=== PATIENT | male | born 1960 | race Caucasian/White ===

== ENCOUNTER → 2018-01-04 | Outpatient (CLI) | payer OTHER ==
--- NOTE | 2018-01-04 12:58 | RAD ---
MR#: [id number] Date of Study: 01/04/2018 Ordering Physician: ENA DOHERTY, Referring Physician: ENA DOHERTY Tech: Lelia Izaguirre RDMS RVT APPROVED REPORT Patient Location: OUT-PATIENT Risk Factors History of Lower Extremity PAD: Bilaterally VELOCITY AND DOPPLER WAVEFORM ANALYSIS RIGHT cm/secWaveformSeverity LEFT cm/secWaveform Severity pCFA 108.5TriphasicpCFA 89.7Triphasic Prof Fem Art. 82.0TriphasicProf Fem Art. 68.0Triphasic Fem Art Prox. 83.6TriphasicFem Art Prox. 111.3Triphasic Fem Art Mid. 68.9TriphasicFem Art Mid. 80.3Triphasic Fem Art Dist. 87.8TriphasicFem Art Dist. 101.2Triphasic Pop Art(Fossa) 61.0TriphasicPop Art(AK) 81.9Triphasic ROLL SLICING MACHINE TENDER Dist. 71.5TriphasicPTA Dist. 45.3Monophasic Per Art Dist.82.0TriphasicPer Art Dist.101.0Triphasic [place] Dist. 72.0TriphasicATA Dist. 77.3Triphasic DPA 75TriphasicDPA 60Triphasic Findings Aceves scale images of the bilatera lower extremity arterial vessels reveals mild luminal atheroscleros is without significant obstruction. Color doppler and spectral waveforms in the right and left common, SFA, Profunda, Popliteal, AT/Peron eal vessels are within normal limits. Left posterior tibial artery velocity is mildly reduced in a mo nophasic wave pattern suggestive of diffuse disease. Critical Notification Critical Value: No <Conclusion> No significant disease in the bilateral lower extremity arterial vessels. Signed by : Ena Doherty, Electronically Approved : 01/04/2018 12:57:22
--- NOTE | 2018-01-04 14:37 | RAD ---
MR#: [id number] Date of Study: 01/04/2018 Ordering Physician: ENA DOHERTY, Referring Physician: ENA DOHERTY, Tech: Lelia Izaguirre RDMS RVT APPROVED REPORT Patient Location : OUT-PATIENT Indications VENOUS INSUFFICIENCY Findings Grayscale images the bilateral saphenofemoral junctions do not reveal any obvious evidence of thrombu s on limited imaging. The right great saphenous vein measures proximally 6 mm and the left great saphenous vein measures ap proximately 7 mm. The bilateral greater saphenous veins have reflux up to 2.5 seconds. The bilateral lesser saphenous veins are positive for reflux at approximately 1.5 seconds. The right lesser saphenous vein measures 5 mm and the left lesser saphenous vein measures 7 mm. Critical Notification Critical Value: No <Conclusion> 1. Reflux in the bilateral greater and lesser saphenous veins. Signed by : Ena Doherty, Electronically Approved : 01/04/2018 14:36:21
--- NOTE | 2018-01-04 14:49 | RAD ---
MR#: [id number] Date of Study: 01/04/2018 Ordering Physician: ENA DOHERTY, Referring Physician: ENA DOHERTY, Tech: APPROVED REPORT Findings Bilateral common femoral veins appear to be compressible without any obvious evidence of thrombus. Due to body habitus the superficial femoral and popliteal veins were not well visualized. The below-k nee veins are also not well visualized. Technically severely difficult study. Critical Notification Critical Value: No <Conclusion> No obvious common femoral vein thrombosis. Technically very limited study. No obvious evidence of thr ombus within these limitations. Signed by : Ena Doherty, Electronically Approved : 01/04/2018 14:48:37
== END | disposition home or self-care (01) ==
LOC: US 08:09
PROVIDERS: ATTEND Internal Medicine Cardiovascular Disease
DX: I73.9 Peripheral vascular disease, unspecified (principal); I87.2 Venous insufficiency (chronic) (peripheral)
CPT/HCPCS: 93925; 93970

== ENCOUNTER → 2018-09-21 | Outpatient (CLI) | payer OTHER ==
[~2018-09-21] MED LIST: CONTRAST GIVEN. MC PRN; IOHEXOL 350 MG/ML 100 ML VIAL. IV ONE; PERFLUTREN PROTEIN-A MICROSPHR 0.22 MG/ML 3 ML VIAL. IV ONE
[2018-09-21 13:41] LABS: CREATININE 1.2 mg/dL (0.7-1.3); GFR 62.6
--- NOTE | 2018-09-21 15:56 | RAD ---
EXAM: CT Abdomen and Pelvis with bilateral lower extremity runoff with IV contrast CLINICAL HISTORY: Lower extremity swelling, pain Evaluate for DVT, evaluate for May Thurner syndrome. COMPARISON: none TECHNIQUE: Helical CT of the abdomen and pelvis was performed following the administration of intravenous contrast with runoff evaluation of the lower extremities during the venous phase. Axial, coronal and sagittal reformatted images were generated. PQRS compliance statement - One or more of the following individualized dose reduction techniques were utilized for this study: 1. Automated exposure control 2. Adjustment of the mA and/or kV according to patient size 3. Use of iterative reconstruction technique FINDINGS: Note, suboptimal contrast bolus timing results in limited opacification of the vessels and solid organs. Lower chest: Lung bases are clear. Left hilar calcified granuloma. Small to moderate-sized hiatal hernia. Abdomen and Pelvis: No focal liver lesion. Gallbladder is normal. No biliary ductal dilatation. Spleen is unremarkable. Adrenal glands and pancreas are unremarkable. Symmetric nephrograms. No focal renal lesion. No hydronephrosis. Bladder is only partially distended but otherwise unremarkable. Appendix is normal. No small or large bowel dilatation. Moderate colonic stool content. No abdominal or pelvic lymphadenopathy. No abdominal or pelvic ascites. Intermittent atherosclerotic calcifications of aorta are seen. There is no significant narrowing of the iliac veins bilaterally iliac arteries to suggest May Thurner syndrome. However limited evaluation given suboptimal vascular opacification. Bilateral lower extremities: Post surgical changes of the right total tuberosity. Subcutaneous soft tissue swelling particularly of the lower legs with subcutaneous calcifications, right greater than left. Again, evaluation for DVT is limited given suboptimal contrast bolus timing. No evidence for acute fracture lower extremities. Calcaneal enthesopathy. Chondrocalcinosis symphysis pubis. Multilevel degenerative changes of spine are seen. No evidence for acute fracture. IMPRESSION: 1. Evaluation of the venous structures is limited given phase of IV contrast. Within these limitations, no definite morphologic changes to suggest May Thurner syndrome. Consider duplex ultrasound of the lower extremities to evaluate for lower extremity DVT. Electronically signed by: Simone Doherty MD (09/21/2018 3:53 PM) [facility]
--- NOTE | 2018-09-21 16:19 | CARD ---
MR#: [id number] Date of Study: 09/21/2018 Ordering Physician: ENA DOHERTY, Referring Physician: ENA DOHERTY, Tech: Carolina Fitzpatrick APPROVED REPORT EXAM: Two-dimensional and M-mode echocardiogram with Doppler and color Doppler. Other Information Quality : FairHR: 70bpm INDICATION Hypertension/HCVD Echo Enhancing Agent Indication: Endocardial border delineation Agent/Amount Used: Optison 10mL RISK FACTORS Diabetes 2D DIMENSIONS Left Atrium(2D)3.4 (1.6-4.0cm)IVSd1.1 (0.7-1.1cm) Aortic Root(2D)3.5 (2.0-3.7cm)LVDd6.3 (3.9-5.9cm) LVOT Diameter2.2 (1.8-2.4cm)PWd1.2 (0.7-1.1cm) LVDs3.3 (2.5-4.0cm)FS (%) 47.8 % SV155.9 ml Aortic Valve AoV Peak Guzman.115.4cm/sAoV VTI20.6cm AO Peak GR.5.3mmHgLVOT Peak Guzman.97.2cm/s LVOT VTI 21.89cmAO Mean GR.3mmHg ROBERT (VMAX)2.43dm3SVF (VTI)4.17cm2 Mitral Valve MV E Bqwhuzbb53.0cm/sMV DECEL [id number] MV A Xgfdtros63.0cm/sMV IKG44gt E/A Ratio1.5MVA (PHT)3.52cm2 TDI E/Lateral E'5.0E/Medial E'5.5 Pulmonary Valve PV Peak Fmbfgchk88.9cm/sPV Peak Grad.3mmHg Tricuspid Valve TR P. Qalpocgc571ud/sRAP [id number] TR Peak Gr.50zpUeZXHE13nuDd Pulmonary Vein S1 Cxgrciek90.7cm/sD2 Wrwsnxvg53.6cm/s PVa hefhjdni470tgls LEFT VENTRICLE The Left Ventricle is mildly dilated. There is mild concentric left ventricular hypertrophy. The left ventricular systolic function is normal and the ejection fraction is within normal range. The Ejecti on Fraction is 55-60%. There is normal LV segmental wall motion. The left ventricular diastolic funct ion and filling is normal for age. RIGHT VENTRICLE The right ventricle is borderline dilated. There is normal right ventricular wall thickness. The righ t ventricular systolic function is normal. ATRIA The left atrium is borderline dilated. The right atrium is mildly dilated. The interatrial septum is intact with no evidence for an atrial septal defect or patent foramen ovale as noted on 2-D or Dopple r imaging. AORTIC VALVE The aortic valve is normal in structure and function. Doppler and Color Flow revealed no significant aortic regurgitation. There is no significant aortic valvular stenosis. MITRAL VALVE The mitral valve is normal in structure and function. There is no evidence of mitral valve prolapse. There is no mitral valve stenosis. Doppler and Color-flow revealed trace mitral regurgitation. TRICUSPID VALVE The tricuspid valve is normal in structure and function. Doppler and Color Flow revealed trace tricus pid regurgitation with an estimated PAP of 40 mmHg. There is no tricuspid valve stenosis. PULMONIC VALVE The pulmonary valve is normal in structure and function. Doppler and Color Flow revealed no pulmonic valvular regurgitation. GREAT VESSELS The aortic root is normal in size. The IVC is normal in size and collapses >50% with inspiration. PERICARDIAL EFFUSION There is no evidence of significant pericardial effusion. Critical Notification Critical Value: No <Conclusion> The Left Ventricle is mildly dilated. The left ventricular systolic function is normal and the ejection fraction is within normal range. The Ejection Fraction is 55-60%. There is mild concentric left ventricular hypertrophy. There is no significant aortic valvular stenosis. Doppler and Color Flow revealed no significant aortic regurgitation. Doppler and Color-flow revealed trace mitral regurgitation. Doppler and Color Flow revealed trace tricuspid regurgitation with an estimated PAP of 40 mmHg. Signed by : Darren Palma MD Electronically Approved : 09/21/2018 16:18:34
== END | disposition home or self-care (01) ==
LOC: CT 13:45
PROVIDERS: ATTEND Internal Medicine Cardiovascular Disease
DX: K44.9 Diaphragmatic hernia without obstruction or gangrene (principal); N32.89 Other specified disorders of bladder; I51.7 Cardiomegaly; I70.0 Atherosclerosis of aorta; J84.10 Pulmonary fibrosis, unspecified; M77.8 Other enthesopathies, not elsewhere classified; M79.89 Other specified soft tissue disorders; I87.2 Venous insufficiency (chronic) (peripheral)
CPT/HCPCS: 36415; 74177; 82565; C8929; Q9956

== ENCOUNTER → 2019-03-14 | Outpatient (CLI) | payer OTHER ==
--- NOTE | 2019-03-14 16:03 | RAD ---
MR#: [id number] Date of Study: 03/14/2019 Ordering Physician: ENA DOHERTY, Referring Physician: ENA DOHERTY, Tech: JUDIE Clarke, RDMS, Rvt APPROVED REPORT Bilateral Lower Extremity Venous Study for DVT Patient Location: OUT-PATIENT Indications edema, dvt, on blood thinners, rt leg wound Risk Factors Obesity Findings Technically very difficult study due to the patient's body habitus of significantly enlarged lower ex tremities The bilateral common femoral veins appear to be patent and compressible. Bilateral superficial femora l veins are grossly patent and compressible The distal superficial femoral vein in the popliteal segment bilaterally are not well visualized. Can not rule out chronic thrombus. Bilateral below-knee veins were not well visualized. Critical Notification Critical Value: No <Conclusion> 1. Technically very difficult study. Cannot rule out the bilateral saphenous popliteal chronic thrombus. Signed by : Ena Doherty, Electronically Approved : 03/14/2019 16:03:14
--- NOTE | 2019-03-14 16:09 | RAD ---
MR#: [id number] Date of Study: 03/14/2019 Ordering Physician: ENA DOHERTY, Referring Physician: ENA DOHERTY, Tech: JUDIE Clarke, RDMS, RTR APPROVED REPORT Patient Location : OUT-PATIENT Indications History of DVT Skin Changes Risk Factors Obesity Findings The right great saphenous vein measures approximately 10 mm and has a maximum reflux time of 1.6 seco nds. The right lesser saphenous veins does not show any evidence of reflux. The left great saphenous vein measures 7 mm and has no evidence of reflux. The left lesser saphenous vein does not show any ev idence of reflux. Critical Notification Critical Value: No <Conclusion> 1. Positive for reflux in the right great saphenous vein. Signed by : Ena Doherty, Electronically Approved : 03/14/2019 16:08:56
== END | disposition home or self-care (01) ==
LOC: US 08:33
PROVIDERS: ATTEND Internal Medicine Cardiovascular Disease
DX: I82.409 Acute embolism and thrombosis of unspecified deep veins of unspecified lower extremity (principal); I87.2 Venous insufficiency (chronic) (peripheral); E66.9 Obesity, unspecified; Z86.718 Personal history of other venous thrombosis and embolism
CPT/HCPCS: 93970

== ENCOUNTER → 2019-09-24 | Outpatient (CLI) | payer OTHER ==
[~2019-09-24] MED LIST changes: -CONTRAST GIVEN. MC PRN; -IOHEXOL 350 MG/ML 100 ML VIAL. IV ONE; +LIDOCAINE 1%/EPI 1:100,000 50 ML, SODIUM BICARBONATE VIAL 5 MEQ in IV NORMAL SALINE 100... SQ STA; -PERFLUTREN PROTEIN-A MICROSPHR 0.22 MG/ML 3 ML VIAL. IV ONE
--- NOTE | 2019-09-24 14:59 | CARD ---
MR#: [id number] Date of Study: 09/24/2019 Ordering Physician: ALFRED COLLADO, Referring Physician: ALFRED COLLADO, Tech: Carolina Chang RVT; Eren POP;JITENDRA APPROVED REPORT Patient StatusOUT-PATIENT [employer]: Carolina Chang RVT; Eren POP;JITENDRA Procedure(s) performed: Endovenous radiofrequency ablation of the Right greater saphenous vein. INDICATION FOR PROCEDURE The indication(s) include : Symptomatic Chronic Venous Insufficiency with Varicose Veins, lower extre mity pain and edema. PROCEDURE NARRATIVE The patient was transferred to the procedure suite and the insufficient saphenous vein was mapped by ultrasound and diagrammed on the underlying skin. The depth and diameter of the vein(s) to be treate d was documented. The varicose tributary veins and suitable access sites were identified and mapped as well. The patient was then positioned supine on the procedure table. The entire limb was sterile ly prepared and the lower extremity and treatment table were sterilely draped. The RF catheter was placed on the sterile field, flushed and wiped down, prepared, and connected by a sterile cable. The patient was placed in reverse-Trendelenburg position and local anesthesia was instilled in the sk in overlying the access site. A skin incision was made overlying the identified and mapped greater s aphenous vein entry site. The vein was punctured through the incision and using ultrasound guidance and the Seldinger technique a guide wire was introduced through the needle which was then exchanged o sebastien the guide wire for a 7 F sheath. The guide wire was removed and the sheath was flushed. The RF probe was placed into the vein through the sheath and positioned at a point just distal (about 0.5 to 1 cm) to the entrance point of the superficial epigastric artery using ultrasound guidance. After the RF probe position was verified by the ultrasound, tumescent anesthesia was infiltrated, und er ultrasound guidance, precisely into the perivenuus compartment along the entire length of vein fro m the entry site to the saphenofemoral junction until a "halo" of fluid was noted around the vein. The patient was then placed in Trendelenburg position. After the RF probe position was again confirm ed with ultrasound imaging, moderate external compression was applied over the RF heating element, an d RF energy was applied. The probe was withdrawn sequentially in 6.5 cm steps with slight overlap of 7 cm segments of ablation and monitored to keep the probe temperature at 120 degrees Celsius and the generator output well below its maximum power. Treatment Segments: 10 Total Length: 52 cm. Tot al Ablation time: 3 minutes 20 secs. Repeat ultrasound of the saphenous vein was performed confirming successful treatment. The catheter and sheath were withdrawn and hemostasis established with direct pressure. After assuring hemostasis , the skin incision over the saphenous vein was closed with a bandage and an external compression mono ssing was applied from the level of the foot to the most proximal level of the thigh. Signed by : Alfred Collado, Electronically Approved : 09/24/2019 14:58:19
== END | disposition home or self-care (01) ==
LOC: VNUS 14:22
PROVIDERS: ATTEND Internal Medicine Cardiovascular Disease
DX: I87.2 Venous insufficiency (chronic) (peripheral) (principal); I83.891 Varicose veins of right lower extremity with other complications
CPT/HCPCS: 36475; J3490; J7030

== ENCOUNTER → 2019-09-25 | Outpatient (CLI) | payer OTHER ==
--- NOTE | 2019-09-25 16:48 | RAD ---
MR#: [id number] Date of Study: 09/25/2019 Ordering Physician: ENA DOHERTY, Referring Physician: ENA DOHERTY, Tech: Bennett Whitatker MBA, RDMS, RVT, RDCS, RTR APPROVED REPORT Bilateral Lower Extremity Venous Study for DVT Patient Location: OUT-PATIENT Indications S/P RT GSV VENASEAL Vein Imaging (Right) CFV (R): Compressible SFJ (R): Compressible FEM (R): Compressible POP (R): Compressible DFV (R): Compressible GSV (R): Absent Flow Doppler Evaluation (Right) CFV (R): Spontaneous POP (R):Spontaneous Findings Limited deep venous right lower extremity ultrasound due to body habitus but grossly no evidence of t hrombus in the visualized common femoral veins to the popliteal veins. Below-knee veins were not wel l visualized. The greater saphenous vein is occluded consistent with recent venaseal ablation therap y. Critical Notification Critical Value: No <Conclusion> 1. No right-sided DVT, status post successful right GSV ablation Signed by : Ena Doherty, Electronically Approved : 09/25/2019 16:48:08
== END | disposition home or self-care (01) ==
LOC: US 15:45
PROVIDERS: ATTEND Internal Medicine Cardiovascular Disease
DX: I82.811 Embolism and thrombosis of superficial veins of right lower extremity (principal); I87.2 Venous insufficiency (chronic) (peripheral)
CPT/HCPCS: 93971